=== PATIENT | male | born 1980 | race Two or more races ===

== ENCOUNTER 2022-05-28 22:24 | Emergency (ER) | payer SELFPAY | END 2022-05-28 22:54 | disposition left against medical advice (07) | LOC: ER 22:24 | DX: L50.9 Urticaria, unspecified (principal); Z53.21 Procedure and treatment not carried out due to patient leaving prior to being seen by health care provider ==

== ENCOUNTER 2023-04-24 17:33 | Emergency (ER) | payer OTHER ==
[~2023-04-24] VITALS: Ht 182.9 cm; Wt 80.7 kg
[2023-04-24 17:56] VITALS: BP 136/83; PULSE 72; RESP 18; TEMP 97.8; O2SAT 99
[2023-04-24] MEDS: HYDROcodone-ACET 5/325MG TAB PO ONE (18:48)
[2023-04-24] MEDS: ceFAZolin IM 1GM/2.5ML STERILE WATER IM ONE ×2 (18:48→21:05)
[2023-04-24] MEDS: LIDOCAINE 1% HCL (LOCAL ANESTH.) INJ 20ML MDV ID ONE (18:49)
[2023-04-24] MEDS: TETANUS-DIPTH-ACEL PERTUSSIS 0.5ML SYR Tdap IM ONE (18:50)
[2023-04-24] MEDS ORDERED: IBUP1TAB5 PO (20:05)
[2023-04-24] MEDS ORDERED: CEPH500C PO (20:05)
[2023-04-24] MEDS ORDERED: MUPI2OIN2 EX (20:05)
[2023-04-24] MEDS ORDERED: HYDR-4902 PO (21:14)
[2023-04-24] MEDS: STERILE WATER 10 ML ONE (21:16)
== END 2023-04-24 21:13 | disposition home or self-care (01) ==
LOC: ER 17:33
DX: S62.636B Displaced fracture of distal phalanx of right little finger, initial encounter for open fracture (principal); Z79.899 Other long term (current) drug therapy; X58.XXXA Exposure to other specified factors, initial encounter; Y93.89 Activity, other specified; Y92.89 Other specified places as the place of occurrence of the external cause; Y99.0 Civilian activity done for income or pay
CPT/HCPCS: 11730; 29125; 73130; 96372; 99284; J0690; J2001